=== PATIENT | female | born 1970 | race Two or more races ===

== ENCOUNTER 2022-02-27 08:55 | Outpatient (CLI) | payer OTHER ==
[~2022-02-27 08:55] MED LIST: CELEBREX100 MG PO; PARLODEL2.5 MG PO; YAZ 28 TABLET1 TAB PO
== END 2022-02-27 09:00 | disposition home or self-care (01) ==
LOC: SONOGRAMA 08:55
PROVIDERS: ATTEND Pathology Anatomic Pathology & Clinical Pathology
DX: E04.1 Nontoxic single thyroid nodule (principal)

== ENCOUNTER 2022-05-22 11:46 | Outpatient (CLI) | payer OTHER | END 2022-05-22 11:49 | disposition home or self-care (01) | LOC: SONOGRAMA 11:46 | PROVIDERS: ATTEND Pathology Anatomic Pathology & Clinical Pathology | DX: D44.0 Neoplasm of uncertain behavior of thyroid gland (principal); E07.9 Disorder of thyroid, unspecified; E04.1 Nontoxic single thyroid nodule ==